=== PATIENT | female | born 2000 ===

== ENCOUNTER 2019-07-25 11:09 | Emergency (ER) | payer OTHER ==
[~2019-07-25] VITALS: Ht 149.9 cm; Wt 81.6 kg
[2019-07-25] MEDS ORDERED: CLARITIN-D 241 EACH PO (14:40)
[2019-07-25] MEDS ORDERED: FLONASE16 GM TOP (14:40)
== END 2019-07-25 15:37 | disposition home or self-care (01) ==
LOC: ER 11:09
DX: B34.9 Viral infection, unspecified (principal)